=== PATIENT | female | born 1965 | race Caucasian/White ===

== ENCOUNTER 2016-07-20 13:49 | Emergency (ER) | payer OTHER ==
--- NOTE | 2016-07-20 17:30 | ED NURSING NOTES ---
Clinical Report - Nurses [facility] [place] [address] 07/20/2016 13:50 Patient: BECKY ESPINO TRIAGE Triage time 1433 PM. Acuity: LEVEL 3. Chief Complaint: SHORTNESS OF BREATH and COUGH. Alert. No acute distress. --14:38 Leodan Haider R.N. 14:33 07/20/16. BP: 153/92. HR: 90. RR: 16. O2 saturation: 99%. Temp: 98.3 F (oral). Pain level now: 12/21. --14:38 Leodan Haider R.N. Weight: 69.3 kg stated. Height/Length: 65 inches Per Patient. BMI: 25.5. --14:35 Leodan Haider R.N. Medications FLUoxetine HCl Oral 25mg, daily. Hydrochlorothiazide Oral 25 mg, daily. Loratadine Oral 10 mg, daily. Methadone HCl Oral (Tablet 10 mg), daily. Wellbutrin Oral 200mg , daily. --14:35 Leodan Haider R.N. Vicodin HP Oral. --14:36 Leodan Haider R.N. Allergies All anti-inflammatory. Aspirin. Codeine. Ibuprofen. Sulfa Antibiotics. --14:35 Leodan Haider R.N. History Arrived by private vehicle. Historian: patient. Accompanied by family. Primary physician (Farooq Limon). Onset was gradual. (about 4 days). ( Patient presents to the ED with symptoms of cough, shortness of breath and mild chest pain.). She has had fever and chest pain. She has had a nonproductive cough (for 4 days). 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 PAST MEDICAL HX: Hypertension. SOCIAL HX: Current some days light tobacco smoker (cigarette)- less than 1/2 a pack per day. Alcohol use. (NO). History of drug use. (NO). Has had symptoms of fever, sore throat and cough. FALL RISK ASSESSMENT: Fall risk assessment completed. No fall risk identified. NUTRITIONAL RISK ASSESSMENT: The nutritional risk assessment revealed no deficiencies. FUNCTIONAL ASSESSMENT: Functional assessment: no impairments noted. LEARNING NEEDS ASSESSMENT: The learning needs assessment revealed no barriers. SKIN INTEGRITY ASSESSMENT: Skin integrity risk assessment completed. No skin integrity risk identified. --14:38 Leodan Haider R.N. PROBLEMS: Immunizations. Hernia. Hypertension. Arthritis. Depression. --14:36 Leodan Haider R.N. ADDITIONAL SURGERIES: Foot. Hernia Repair. --14:36 Leodan Haider R.N. Interventions ID band on patient. --14:38 Leodan Haider R.N. PHYSICAL ASSESSMENT Ambulatory to room. GENERAL / NEURO / PSYCH: Alert. Oriented X 4. Appears in no acute distress. HEENT: Mucous membranes are pink. RESPIRATORY: Mild respiratory distress. The patient can speak in full sentences. Cough. Chest wall tenderness. CVS: Normal sinus rhythm noted. Capillary refill less than 2 seconds. GI / : Abdomen soft and nontender. Bowel sounds within normal limits. SKIN: Skin is warm and dry. Normal skin turgor. --14:38 Leodan Haider R.N. NURSING PROGRESS NOTES Head of bed elevated. Call light placed in reach. Side rails up x 1. --14:38 Leodan Haider R.N. The patient is calm and resting quietly. --16:46 Leodan Haider R.N. 16:46 07/20/16. BP: 153/102. HR: 88. RR: 16. O2 saturation: 98%. --16:46 Leodan Haider R.N. DISPOSITION / DISCHARGE Condition at departure: unchanged. No learning barriers present. Discharge instructions provided and reviewed with the patient. Reviewed medication(s) side effects, precautions, dosing and course information. Prescription(s) given to the patient. Reviewed fever care instructions. Patient verbalized understanding. Written instructions provided in [place]. The patient was discharged home and accompanied by spouse. She left the Emergency Department ambulatory and via private vehicle. Spouse driving. --17:59 Leodan Haider R.N. 17:58 07/20/16. BP: 163/111. HR: 93. RR: 18. O2 saturation: 97%. Temp: 98.4 F. Pain level now: 0/10. --17:59 Leodan Haider R.N. FALL RISK ASSESSMENT: Fall risk assessment completed. No fall risk identified. --17:59 Leodan Haider R.N. Departure time: 1759 PM. --17:59 Leodan Haider R.N. Locked/Released at 07/20/2016 18:00 by Leodan Haider R.N.
--- NOTE | 2016-07-20 17:30 | ED CLINICAL REPORT ---
Clinical Report - Physicians/Mid Levels [facility] [address] [place] [address] 07/20/2016 13:50 Patient: BECKY ESPINO Time Seen: 16:43; initial patient contact, initial documentation, patient care assumed. Arrived- By private vehicle. Historian- patient. HISTORY OF PRESENT ILLNESS Chief Complaint: COUGH, FEVER and MUSCLE ACHES. This started about 4 days ago and is still present. The illness is described as moderate. The patient has had a cough, a subjective fever, generalized muscle aches and chest pain. She has had scant amounts of thick, yellow sputum. Additional history - The patient has had contact with a sick individual. No recent travel. Similar symptoms previously: None. Recent medical care: The patient was seen recently by a health care provider. REVIEW OF SYSTEMS No vomiting or diarrhea. All systems otherwise negative, except as recorded above. PAST HISTORY See nurses notes. PROBLEMS: Immunizations. Hernia. Hypertension. Arthritis. Depression. --14:36 Leodan Haider R.N. ADDITIONAL SURGERIES: Foot. Hernia Repair. --14:36 Leodan Haider R.N. SOCIAL HISTORY Light tobacco smoker. Occasional alcohol use. History of occasional drug use. Not exposed to second-hand smoke at home. No recent travel. Is a local resident. FAMILY HISTORY Negative. ADDITIONAL NOTES The nursing notes have been reviewed with agreement regarding the chief complaint, HPI, ROS, PMH and patient medications and allergies. PHYSICAL EXAM Vital Signs: 07/20/2016 14:33 BP: 153/92. HR: 90. RR: 16. O2 saturation: 99%. Temp: 98.3 F. Pain level now: 6/10. Have been reviewed as abnormal and appear to be correct. Hypertensive. Heart rate normal. Respiratory rate normal. Temperature normal. Oxygen saturation normal. Appearance: Alert. No acute distress. Eyes: Pupils equal, round and reactive to light. Eyes normal inspection. ENT: Ears normal. Nose normal. Pharynx normal. Uvula midline. Neck: Normal inspection. Neck supple. CVS: Normal heart rate and rhythm. Heart sounds normal. Pulses normal. Respiratory: No respiratory distress. Breath sounds normal. Abdomen: Soft and nontender. No organomegaly. Back: Normal inspection. Skin: Skin warm and dry. Normal skin color. No rash. Normal skin turgor. Extremities: Extremities exhibit normal ROM. No lower extremity edema. Neuro: Oriented X 3. No motor deficit. No sensory deficit. PROGRESS AND PROCEDURES Patient counseled in person regarding the patient's stable condition and diagnosis. 17:21. Differential Diagnosis: Other possible considerations: uri, flu, bronchitis, sinusitis, pneumonia. Above considerations are based on history and physical exam. Differential diagnosis was discussed with patient. Disposition: Discharged home in good and improved condition (17:21). Condition: good and stable. CLINICAL IMPRESSION Acute viral rhinitis. No airway obstruction. INSTRUCTIONS Alternate Tylenol (Acetaminophen) and Motrin (Ibuprofen) for fever, temperature greater than 101 degrees orally. Take according to label instructions. Drink plenty of fluids for the next 24 hours until better. Warnings: GENERAL WARNINGS: Return or contact your physician immediately if your condition worsens or changes unexpectedly, if not improving as expected, or if other problems arise. Specifically return if problem worsens. OTC Medications: Mucinex DM: (available over the counter) take according to label instructions. Follow-up: Follow up with your doctor in about three days even if well. Call for an appointment. Summary of care provided to patient. Screening today revealed the patient's blood pressure to be in the hypertensive range. The patient should follow up with a primary care provider for blood pressure management. Understanding of the discharge instructions verbalized by patient. (Electronically signed by Ernestina Marks A.R.N.P. 07/20/2016 18:11)
--- NOTE | 2016-07-20 17:30 | ED NURSING NOTES ---
Clinical Report - Nurses [facility] [place] [address] 07/20/2016 13:50 Patient: BECKY ESPINO TRIAGE Triage time 1433 PM. Acuity: LEVEL 3. Chief Complaint: SHORTNESS OF BREATH and COUGH. Alert. No acute distress. --14:38 Leodan Haider R.N. 14:33 07/20/16. BP: 153/92. HR: 90. RR: 16. O2 saturation: 99%. Temp: 98.3 F (oral). Pain level now: 12/21. --14:38 Leodan Haider R.N. Weight: 69.3 kg stated. Height/Length: 65 inches Per Patient. BMI: 25.5. --14:35 Leodan Haider R.N. Medications FLUoxetine HCl Oral 25mg, daily. Hydrochlorothiazide Oral 25 mg, daily. Loratadine Oral 10 mg, daily. Methadone HCl Oral (Tablet 10 mg), daily. Wellbutrin Oral 200mg , daily. --14:35 Leodan Haider R.N. Vicodin HP Oral. --14:36 Leodan Haider R.N. Allergies All anti-inflammatory. Aspirin. Codeine. Ibuprofen. Sulfa Antibiotics. --14:35 Leodan Haider R.N. History Arrived by private vehicle. Historian: patient. Accompanied by family. Primary physician (Farooq Limon). Onset was gradual. (about 4 days). ( Patient presents to the ED with symptoms of cough, shortness of breath and mild chest pain.). She has had fever and chest pain. She has had a nonproductive cough (for 4 days). 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 PAST MEDICAL HX: Hypertension. SOCIAL HX: Current some days light tobacco smoker (cigarette)- less than 1/2 a pack per day. Alcohol use. (NO). History of drug use. (NO). Has had symptoms of fever, sore throat and cough. FALL RISK ASSESSMENT: Fall risk assessment completed. No fall risk identified. NUTRITIONAL RISK ASSESSMENT: The nutritional risk assessment revealed no deficiencies. FUNCTIONAL ASSESSMENT: Functional assessment: no impairments noted. LEARNING NEEDS ASSESSMENT: The learning needs assessment revealed no barriers. SKIN INTEGRITY ASSESSMENT: Skin integrity risk assessment completed. No skin integrity risk identified. --14:38 Leodan Haider R.N. PROBLEMS: Immunizations. Hernia. Hypertension. Arthritis. Depression. --14:36 Leodan Haider R.N. ADDITIONAL SURGERIES: Foot. Hernia Repair. --14:36 Leodan Haider R.N. Interventions ID band on patient. --14:38 Leodan Haider R.N. PHYSICAL ASSESSMENT Ambulatory to room. GENERAL / NEURO / PSYCH: Alert. Oriented X 4. Appears in no acute distress. HEENT: Mucous membranes are pink. RESPIRATORY: Mild respiratory distress. The patient can speak in full sentences. Cough. Chest wall tenderness. CVS: Normal sinus rhythm noted. Capillary refill less than 2 seconds. GI / : Abdomen soft and nontender. Bowel sounds within normal limits. SKIN: Skin is warm and dry. Normal skin turgor. --14:38 Leodan Haider R.N. NURSING PROGRESS NOTES Head of bed elevated. Call light placed in reach. Side rails up x 1. --14:38 Leodan Haider R.N. The patient is calm and resting quietly. --16:46 Leodan Haider R.N. 16:46 07/20/16. BP: 153/102. HR: 88. RR: 16. O2 saturation: 98%. --16:46 Leodan Haider R.N. DISPOSITION / DISCHARGE Condition at departure: unchanged. No learning barriers present. Discharge instructions provided and reviewed with the patient. Reviewed medication(s) side effects, precautions, dosing and course information. Prescription(s) given to the patient. Reviewed fever care instructions. Patient verbalized understanding. Written instructions provided in [place]. The patient was discharged home and accompanied by spouse. She left the Emergency Department ambulatory and via private vehicle. Spouse driving. --17:59 Leodan Haider R.N. 17:58 07/20/16. BP: 163/111. HR: 93. RR: 18. O2 saturation: 97%. Temp: 98.4 F. Pain level now: 0/10. --17:59 Leodan Haider R.N. FALL RISK ASSESSMENT: Fall risk assessment completed. No fall risk identified. --17:59 Leodan Haider R.N. Departure time: 1759 PM. --17:59 Leodan Haider R.N. Locked/Released at 07/20/2016 18:00 by Leodan Haider R.N.
--- NOTE | 2016-07-20 18:11 | ED MAR SUMMARY ---
..... Medication Administration Record [facility] [address] [place], [place] [id number] Patient: BECKY ESPINO Visit ID: [id number] 50y, F Weight: 69.3 kg Height/Length: 65 in BMI: 25.5 ALLERGIES: All anti-inflammatory, Aspirin, Codeine, Ibuprofen, Sulfa Antibiotics
--- NOTE | 2016-07-20 18:11 | ED MAR SUMMARY ---
..... Medication Administration Record [facility] [address] [place], [place] [id number] Patient: BECKY ESPINO Visit ID: [id number] 50y, F Weight: 69.3 kg Height/Length: 65 in BMI: 25.5 ALLERGIES: All anti-inflammatory, Aspirin, Codeine, Ibuprofen, Sulfa Antibiotics
--- NOTE | 2016-07-20 18:11 | ED MED RECONCILIATION SUMMARY ---
Patient: BECKY ESPINO Medication Reconciliation Report [facility] VisitID: [id number] [address] [place] [address] 50y, F Registration Date/Time: 07/20/2016 Weight: 69.3 kg Height/Length: 65 in. BMI: 25.5 ALLERGIES: All anti-inflammatory, Aspirin, Codeine, Ibuprofen, Sulfa Antibiotics The patient's Home Medications are listed below: THE FOLLOWING MEDICATIONS NEED TO BE RECONCILED: FLUoxetine HCl Oral 25mg, daily Hydrochlorothiazide Oral 25 mg, daily Loratadine Oral 10 mg, daily Methadone HCl Oral (10 mg), daily Vicodin HP Oral Wellbutrin Oral 200mg , daily The source(s) of the original Home Medication information: Not obtained. The following Medications were given to the patient in the Emergency Department: None. The following Medications were prescribed to the patient: Mucinex DM: (available over the counter) take according to label instructions. -- Ernestina Marks A.R.N.PVidhi
--- NOTE | 2016-07-20 18:11 | ED MED RECONCILIATION SUMMARY ---
Patient: BECKY ESPINO Medication Reconciliation Report [facility] VisitID: [id number] [address] [place] [address] 50y, F Registration Date/Time: 07/20/2016 Weight: 69.3 kg Height/Length: 65 in. BMI: 25.5 ALLERGIES: All anti-inflammatory, Aspirin, Codeine, Ibuprofen, Sulfa Antibiotics The patient's Home Medications are listed below: THE FOLLOWING MEDICATIONS NEED TO BE RECONCILED: FLUoxetine HCl Oral 25mg, daily Hydrochlorothiazide Oral 25 mg, daily Loratadine Oral 10 mg, daily Methadone HCl Oral (10 mg), daily Vicodin HP Oral Wellbutrin Oral 200mg , daily The source(s) of the original Home Medication information: Not obtained. The following Medications were given to the patient in the Emergency Department: None. The following Medications were prescribed to the patient: Mucinex DM: (available over the counter) take according to label instructions. -- Ernestina Marks A.R.N.PVidhi
--- NOTE | 2016-07-20 18:11 | ED DISCHARGE INSTRUCTIONS ---
Patient: BECKY ESPINO General Instructions [facility] VisitID: [id number] [place] [address] 50y, F Registration Date/Time: 07/20/2016 Acute viral rhinitis. No airway obstruction. INSTRUCTIONS Alternate Tylenol (Acetaminophen) and Motrin (Ibuprofen) for fever, temperature greater than 101 degrees orally. Take according to label instructions. Drink plenty of fluids for the next 24 hours until better. Warnings: GENERAL WARNINGS: Return or contact your physician immediately if your condition worsens or changes unexpectedly, if not improving as expected, or if other problems arise. Specifically return if problem worsens. OTC Medications: Mucinex DM: (available over the counter) take according to label instructions. Follow-up: Follow up with your doctor in about three days even if well. Call for an appointment. Summary of care provided to patient. Screening today revealed the patient's blood pressure to be in the hypertensive range. The patient should follow up with a primary care provider for blood pressure management. Understanding of the discharge instructions verbalized by patient. ADDITIONAL INFORMATION Viral Respiratory Illness [Adult] You have an Upper Respiratory Illness (URI) caused by a virus. This illness is contagious during the first few days. It is spread through the air by coughing and sneezing or by direct contact (touching the sick person and then touching your own eyes, nose or mouth). Most viral illnesses go away within 7-10 days with rest and simple home remedies. Sometimes, the illness may last for several weeks. Antibiotics will not kill a virus and are generally not prescribed for this condition. Home Care: 1) If symptoms are severe, rest at home for the first 2-3 days. When you resume activity, don't let yourself get too tired. 2) Avoid being exposed to cigarette smoke (yours or others). 3) Tylenol (acetaminophen) or ibuprofen (Advil, Motrin) will help fever, muscle aching and headache. (Persons under 18 with fever should not take aspirin since this may cause liver damage.) 4) Your appetite may be poor, so a light diet is fine. Avoid dehydration by drinking 6-8 glasses of fluids per day (water, soft drinks, juices, tea, soup). Extra fluids will help loosen secretions in the nose and lungs. 5) [id number]-ihhkboh cold medicines will not shorten the length of time youre sick, but they may be helpful for the following symptoms: cough (Robitussin DM); sore throat (Chloraseptic lozenges or spray); nasal and sinus congestion (Actifed, Sudafed, Chlortrimeton). Follow Up with your doctor or as advised if you dont improve over the next week. Get Prompt Medical Attention if any of the following occur: -- Cough with lots of colored sputum (mucus) or blood in your sputum -- Chest pain, shortness of breath, wheezing or have trouble breathing -- Severe headache; face, neck or ear pain -- Fever over 100.4 F (38.0 C) for more than three days -- You cant swallow due to throat pain Fever Control (Adult) A fever is a natural reaction of the body to an illness. In most cases, the temperature itself is not harmful. It actually helps the body fight infections. A fever does not need to be treated unless you feel very uncomfortable. Home Care If you feel warm, check your temperature. If you feel very uncomfortable and your temperature is at or higher than 100.4F (38C) oral, you may take acetaminophen (Tylenol) every 4 to 6 hours. If you cant take or keep down oral medicine, ask your pharmacist for Tylenol suppositories, which you can get without a prescription. If the fever does not respond to acetaminophen within 1 hour, take ibuprofen (Advil or Motrin). If this works, keep taking the ibuprofen every 6 to 8 hours. Note: If you have chronic liver or kidney disease or ever had a stomach ulcer or GI bleeding, talk with your doctor before using these medications. If either medication alone does not keep the fever down, you may alternate the two medicines every 3 to 4 hours, only if your healthcare provider has instructed you to do so. For example, take Motrin then wait 3 hours, take Tylenol then wait 3 hours, take Motrin, and so on. Follow your healthcare providers instructions exactly. Clothing: Keep clothing light because excess body heat is lost through the skin. The fever will go up if you wear extra layers or wrap in blankets. Fluids: Fever causes the body to lose water through evaporation. Drink plenty of fluids such as water, juice, clear sodas, saul modesto, or lemonade. Do not use aspirin in anyone under 18 years of age who is ill with a fever. It can cause severe liver damage. Follow Up with your doctor or as advised by our staff if you do not get better after 48 hours. Get Prompt Medical Attention if any of the following occur: Fever does not get better after taking fever medication Fast or difficult breathing Earache, sinus pain, stiff or painful neck, headache, repeated diarrhea or vomiting You feel unusually irritable, drowsy, or confused A rash appears You feel weak or dizzy, or that you might faint Guaifenesin Oral syrup What is this medicine? GUAIFENESIN (gwye FEN e sin) is an expectorant. It helps to thin mucous and make coughs more productive. This medicine is used to treat coughs caused by colds or the flu. It is not intended to treat chronic cough caused by smoking, asthma, emphysema, or heart failure. How should I use this medicine? Take this medicine by mouth. Follow the directions on the prescription label. Use a specially marked spoon or container to measure your dose. Household spoons are not accurate. Take your medicine at regular intervals. Do not take it more often than directed. Talk to your shotblaster regarding the use of this medicine in children. Special care may be needed. What side effects may I notice from receiving this medicine? Side effects that you should report to your doctor or health anesthesiologist and critical care as soon as possible: allergic reactions like skin rash, itching or hives, swelling of the face, lips, or tongue Side effects that usually do not require medical attention (report to your doctor or health anesthesiologist and critical care if they continue or are bothersome): dizziness headache stomach upset What may interact with this medicine? Interactions are not expected. What if I miss a dose? If you miss a dose, take it as soon as you can. If it is almost time for your next dose, take only that dose. Do not take double or extra doses. Where should I keep my medicine? Keep out of the reach of children. Store at room temperature between 20 and 25 degrees C (68 and 77 degrees F). Do not freeze. Keep container tightly closed. Throw away any unused medicine after the expiration date. What should I tell my health care provider before I take this medicine? They need to know if you have any of these conditions: diabetes fever kidney disease an unusual or allergic reaction to guaifenesin, other medicines, foods, dyes, or preservatives or trying to get breast-feeding What should I watch for while using this medicine? Do not treat a cough for more than 1 week without consulting your doctor or health anesthesiologist and critical care. If you also have a high fever, skin rash, continuing headache, or sore throat, see your doctor. For best results, drink 6 to 8 glasses water daily while you are taking this medicine. You have been given the following additional information: Uri, Viral, No Abx (Adult) Fever Control (Adult) Guaifenesin Oral syrup (Electronically signed by Ernestina Marks A.R.N.P. 07/20/2016 18:11)
== END 2016-07-20 18:01 | disposition home or self-care (01) ==
LOC: ED SRH 13:49
DX: J00 Acute nasopharyngitis [common cold] (principal); I10 Essential (primary) hypertension; Z79.891 Long term (current) use of opiate analgesic; Z79.899 Other long term (current) drug therapy; F17.210 Nicotine dependence, cigarettes, uncomplicated; Z88.2 Allergy status to sulfonamides; Z88.5 Allergy status to narcotic agent; Z88.6 Allergy status to analgesic agent

== ENCOUNTER 2016-08-06 20:04 | Emergency (ER) | payer OTHER ==
--- NOTE | 2016-08-06 20:54 | DIAGNOSTIC IMAGING REPORT ---
PROCEDURE: CT HEAD WITHOUT CONTRAST INDICATION: Headache after injury. TECHNIQUE: Noncontrast axial images with sagittal and coronal reformations. COMPARISON: None. FINDINGS: Allowing for mild motion, brain and ventricles are normal. No evidence of an acute process or hemorrhage. Sinuses and mastoids are normal. IMPRESSION: 1. Negative head CT. 2. Findings discussed with CRISPIN Pedro at [address] scans at this facility use dose modulation, iterative reconstruction, and/or weight-based dosing when appropriate to reduce radiation dose to as low as reasonably achievable.
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
--- NOTE | 2016-08-06 20:56 | ED ORDER SUMMARY ---
..... Patient: BECKY ESPINO OrderSheet [facility] VisitID: [id number] [address] [place] [address] 51y, F Registration Date/Time: 08/06/2016 ORDER SHEET Weight: 69.3 kg (stated) Allergies: All anti-inflammatory, Aspirin, Codeine, Ibuprofen, Sulfa Antibiotics GENERAL ORDERS: CT Head wo Cont Urgent (20:33 08/06/2016 Gen Melendez) ([facility] 20:36 [facility] MEDICATION ORDERS: IV FLUIDS: ORDER SHEET NOTES: [Electronically signed by Yolanda Torres P.A.-C (21:47 08/06/2016)] [Electronically signed by Andrea Freeman R.N. (23:58 08/06/2016)] [Electronically locked/signed by Andrea Freeman R.N. (23:58 08/06/2016)]
--- NOTE | 2016-08-06 20:56 | ED ORDER SUMMARY ---
..... Patient: BECKY ESPINO OrderSheet [facility] VisitID: [id number] [address] [place] [address] 51y, F Registration Date/Time: 08/06/2016 ORDER SHEET Weight: 69.3 kg (stated) Allergies: All anti-inflammatory, Aspirin, Codeine, Ibuprofen, Sulfa Antibiotics GENERAL ORDERS: CT Head wo Cont Urgent (20:33 08/06/2016 Gen Melendez) ([facility] 20:36 [facility] MEDICATION ORDERS: IV FLUIDS: ORDER SHEET NOTES: [Electronically signed by Yolanda Torres P.A.-C (21:47 08/06/2016)] [Electronically signed by Andrea Freeman R.N. (23:58 08/06/2016)] [Electronically locked/signed by Andrea Freeman R.N. (23:58 08/06/2016)]
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
--- NOTE | 2016-08-06 23:58 | ED MED RECONCILIATION SUMMARY ---
Patient: BECKY ESPINO Medication Reconciliation Report [facility] VisitID: [id number] [address] [place] [address] 51y, F Registration Date/Time: 08/06/2016 Weight: 69.3 kg Height/Length: 65 in. BMI: 25.5 ALLERGIES: All anti-inflammatory, Aspirin, Codeine, Ibuprofen, Sulfa Antibiotics The patient's Home Medications are listed below: THE FOLLOWING MEDICATIONS NEED TO BE RECONCILED: FLUoxetine HCl Oral 25mg, daily Hydrochlorothiazide Oral 25 mg, daily Loratadine Oral 10 mg, daily Methadone HCl Oral (10 mg), daily Vicodin HP Oral Wellbutrin Oral 200mg , daily The source(s) of the original Home Medication information: patient The following Medications were given to the patient in the Emergency Department: None. The following Medications were prescribed to the patient: Take OTC medications according to label instructions. Available over the counter. -- Yolanda Torres, P.A.-C Acetaminophen (available over the counter): take according to label instructions. -- Yolanda Torres, P.A.-C Motrin (available over the counter): take according to label instructions. -- Yolanda Torres, P.A.-C
--- NOTE | 2016-08-06 23:58 | ED MAR SUMMARY ---
..... Medication Administration Record [facility] [address] [place], [place] [id number] Patient: BECKY ESPINO Visit ID: [id number] 51y, F Weight: 69.3 kg Height/Length: 65 in BMI: 25.5 ALLERGIES: All anti-inflammatory, Aspirin, Codeine, Ibuprofen, Sulfa Antibiotics
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
--- NOTE | 2016-08-06 23:58 | ED MED RECONCILIATION SUMMARY ---
Patient: BECKY ESPINO Medication Reconciliation Report [facility] VisitID: [id number] [address] [place] [address] 51y, F Registration Date/Time: 08/06/2016 Weight: 69.3 kg Height/Length: 65 in. BMI: 25.5 ALLERGIES: All anti-inflammatory, Aspirin, Codeine, Ibuprofen, Sulfa Antibiotics The patient's Home Medications are listed below: THE FOLLOWING MEDICATIONS NEED TO BE RECONCILED: FLUoxetine HCl Oral 25mg, daily Hydrochlorothiazide Oral 25 mg, daily Loratadine Oral 10 mg, daily Methadone HCl Oral (10 mg), daily Vicodin HP Oral Wellbutrin Oral 200mg , daily The source(s) of the original Home Medication information: patient The following Medications were given to the patient in the Emergency Department: None. The following Medications were prescribed to the patient: Take OTC medications according to label instructions. Available over the counter. -- Yolanda Torres, P.A.-C Acetaminophen (available over the counter): take according to label instructions. -- Yolanda Torres, P.A.-C Motrin (available over the counter): take according to label instructions. -- Yolanda Torres, P.A.-C
--- NOTE | 2016-08-06 23:58 | ED MAR SUMMARY ---
..... Medication Administration [facility] [address] [place], [place] [id number] Patient: BECKY ESPINO Visit ID: [id number] 51y, F Weight: 69.3 kg Height/Length: 65 in BMI: 25.5 ALLERGIES: All anti-inflammatory, Aspirin, Codeine, Ibuprofen, Sulfa Antibiotics
== END 2016-08-06 21:03 | disposition home or self-care (01) ==
LOC: ED SRH 20:04
DX: S16.1XXA Strain of muscle, fascia and tendon at neck level, initial encounter (principal); S09.93XA Unspecified injury of face, initial encounter; V43.61XA Car passenger injured in collision with sport utility vehicle in traffic accident, initial encounter; Y93.89 Activity, other specified; Y92.410 Unspecified street and highway as the place of occurrence of the external cause; Y99.8 Other external cause status; I10 Essential (primary) hypertension; F17.210 Nicotine dependence, cigarettes, uncomplicated; Z79.899 Other long term (current) drug therapy; Z88.2 Allergy status to sulfonamides